=== PATIENT | female | born 1990 | race African-American/Black ===

== ENCOUNTER 2020-10-11 21:30 | Emergency (ER) | payer SELFPAY ==
[~2020-10-11] VITALS: Ht 175.3 cm; Wt 91.0 kg
[2020-10-11 23:44] LABS: CLARITY URINE CLEAR (CLEAR); COLOR URINE YELLOW (YELLOW); KETONES URINE NEGATIVE (NEGATIVE); LEUKOCYTE ESTERASE URINE TRACE (NEGATIVE); NITRITE URINE NEGATIVE (NEGATIVE); OCCULT BLOOD URINE NEGATIVE (NEGATIVE); PH URINE 6.5 (4.5-8.0); PROTEIN URINE NEGATIVE (NEGATIVE); SPECIFIC GRAVITY URINE 1.015 (1.005-1.030)
[2020-10-12] MEDS ORDERED: KETOROLAC 30MG/ML VIAL IM ONE
[2020-10-12] MEDS ORDERED: CIPR-263 MT (00:33)
[2020-10-12 01:29] VITALS: BP 118/75
== END 2020-10-12 01:31 | disposition home or self-care (01) ==
LOC: ER 21:30
DX: N39.0 Urinary tract infection, site not specified (principal); Z98.51 Tubal ligation status
CPT/HCPCS: 81003; 81025; 96372; 99283; J1885